=== PATIENT | male | born 1955 | race Caucasian/White ===

== ENCOUNTER → 2023-03-04 10:24 | Outpatient (BNVA) | payer MEDICARE, MEDICAID, SELFPAY | PROVIDERS: Visit Provider Emergency Medicine | DX: R05.3 Chronic cough (principal); U09.9 Post COVID-19 condition, unspecified; E78.5 Hyperlipidemia, unspecified; I10 Essential (primary) hypertension; Z12.5 Encounter for screening for malignant neoplasm of prostate; R35.1 Nocturia; K52.9 Noninfective gastroenteritis and colitis, unspecified | CPT/HCPCS: 80053; 80061; 83880; 85025; G0103 ==

== ENCOUNTER → 2023-06-07 11:27 | Outpatient (BNVA) | payer MEDICARE, MEDICAID, SELFPAY | PROVIDERS: Referring Provider Nurse Practitioner Family; Visit Provider Internal Medicine Cardiovascular Disease | DX: R05.3 Chronic cough (principal); U09.9 Post COVID-19 condition, unspecified; R07.9 Chest pain, unspecified; I65.29 Occlusion and stenosis of unspecified carotid artery; I10 Essential (primary) hypertension; E78.5 Hyperlipidemia, unspecified; K21.9 Gastro-esophageal reflux disease without esophagitis; K52.9 Noninfective gastroenteritis and colitis, unspecified | CPT/HCPCS: 93005; 99204 ==

== ENCOUNTER 2023-07-02 12:54 | Outpatient (CLI) | payer MEDICARE, MEDICAID, SELFPAY ==
--- NOTE | 2023-07-02 13:15 | USCV_ITS ---
Tex Krishna Age: 67 Gender: M : 1955 Exam Date: 07/02/2023 13:17 Ordering Phys: Claritza Puentes MD ([email or web address]) Technologist: MANUEL Exam Location: [facility] Indication: caroid stenosis Risk Factors: Smoker Previous Vascular Surgery: None Right Brachial BP: / Left Brachial BP: / Right Left Velocity (cm/s) Spectral Plaque Velocity (cm/s) Spectral Plaque Syst/Diast Broadening Syst/Diast Broadening 45.40/ 8.50 Prox CCA 40.60 / 9.10 91.40/ 17.10 Mid CCA 45.40 / 11.70 70.00/ 14.50 Distal CCA 90.60 / 18.80 74.80/ 21.70 Prox ICA 55.50 / 16.20 88.10/ 22.90 Mid ICA 47.40 / 11.10 95.30/ 25.30 Distal ICA 49.30 / 15.30 95.30 ECA 147.20 1.04 ICA/CCA 0.61 Antegrade Vertebral Retrograde 95.30/ 21.70 cm/s 41.90/ 6.00 cm/s Tri Subclavian Bi 80.70 143.2 0 CONCLUSIONS Right ICA stenosis <50%. Mild atheromatous plaque right carotid bulb/ICA. Left ICA stenosis <50%. Mild atheromatous plaque left carotid bulb/ICA. Intimal thickening in the common carotid arteries and internal carotid arteries bilaterally. Normal antegrade Doppler flow noted in the right vertebral artery. Normal antegrade Doppler flow noted in the left vertebral artery. Mat Urbano MD (Electronically Signed) Final Date: 02 July 2023 15:54 S
--- NOTE | 2023-07-02 13:45 | USR_ITS ---
PROCEDURE INFORMATION: Exam: US Duplex Upper Extremity Arteries Exam date and time: 07/02/2023 1:48 PM Age: 67 years old Clinical indication: Other: Difference in BP between left and right arm; Patient HX: No injury of upper extremity, no pain, no swellling; Additional info: Subclavian stenosis suspected TECHNIQUE: Imaging protocol: Real-time ultrasound scan of the arteries of the bilateral upper extremities with 2-D bruno scale, color Doppler flow and spectral waveform analysis. Complete exam. COMPARISON: No relevant prior studies available. FINDINGS: Right lower extremity: Subclavian artery, right axillary and brachial arteries are triphasic.. Right radial artery and ulnar arteries are triphasic. Patent palmar arch. Left lower extremity: Left subclavian artery appears multi phasic with dampened upstroke and prolonged delta S. Axillary artery brachial artery are monophasic. Left radial artery monophasic as is the ulnar artery. US/[place] [id number] Impression: Abnormal waveforms on the left diffusely suggestive of a left upper extremity narrowing. Consider CT angiography to include the origin of the left subclavian artery. Correlate regarding asymmetry of the upper extremity pulses.
== END 2023-07-02 12:55 | disposition home or self-care (01) ==
PROVIDERS: Visit Provider Internal Medicine Cardiovascular Disease
DX: I65.23 Occlusion and stenosis of bilateral carotid arteries (principal)
CPT/HCPCS: 93880; 93930

== ENCOUNTER 2023-08-12 11:46 | Outpatient (CLI) | payer MEDICARE, MEDICAID, SELFPAY ==
--- NOTE | 2023-08-12 12:00 | CT_ITS ---
WS: [id number] CT scan of the left upper extremity. Additional two-dimensional coronal and sagittal reconstruction w as performed. MIP images were also performed. 08/12/2023 Clinical Data: R94.39 - Abnormal result of other cardiovascular function... Comparison: Arterial upper extremity ultrasound, 07/02/2023 DLP: 536.[address] scans at [facility] use at least one of these dose optimization techniques: automated e xposure control; mA and/or kV adjustment per patient size (includes targeted exams where dose is matc hed to clinical indication); or iterative reconstruction. Findings: The contrast material entered the left subclavian artery. Just beyond its origin there was an approxi mate 80% stenosis. The contrast material did flow beyond the stenosis to fill the brachial artery and numerous branches of the left arm. The right subclavian artery was larger and show no stenosis. 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
[2023-08-12 12:47] LABS: Blood Urea Nitrogen 9 mg/dL (8-23); Glomerular Filtration Rate 84.2 mL/min (90-130)
[2023-08-12] MEDS: iohexol 350 mg/mL 500 mL Btl (per mL) IV (13:02)
== END 2023-08-12 11:47 | disposition home or self-care (01) ==
LOC: RAD 11:47
PROVIDERS: Visit Provider Internal Medicine Cardiovascular Disease
DX: I70.8 Atherosclerosis of other arteries (principal); R94.39 Abnormal result of other cardiovascular function study
CPT/HCPCS: 73206; 82565; 84520; Q9967

== ENCOUNTER → 2023-09-22 13:15 | Outpatient (BNVA) | payer MEDICARE, MEDICAID, SELFPAY | PROVIDERS: Visit Provider Internal Medicine | DX: I65.29 Occlusion and stenosis of unspecified carotid artery (principal); I10 Essential (primary) hypertension; E78.5 Hyperlipidemia, unspecified; K21.9 Gastro-esophageal reflux disease without esophagitis | CPT/HCPCS: 99214 ==

== ENCOUNTER 2023-10-28 14:07 | Outpatient (CLI) | payer MEDICARE, MEDICAID, SELFPAY ==
--- NOTE | 2023-10-28 14:30 | CT_ITS ---
WS: [id number] LDCT LUNG CANCER SCREENING HISTORY: Z87.891 - Personal history of nicotine dependence TECHNIQUE: Axial imaging performed from the apices to 1 cm below the costophrenic angles. Coronal and sagittal reformats are submitted with axial MIP series. All CT scans at [facility] use at least one of these dose optimization techniques: automated exposure control; mA and/or kV adjustment per patient size (includes targeted exams where dose is matched to clinical indication); or iterativ e reconstruction. DLP: 81.08 mGy.cm DIvol: Mean CTDIvol: 1.50 (mGy) COMPARISON: None available. Diagnostic quality: Satisfactory Lungs: Moderate centrilobular emphysema. No pulmonary nodule or mass. No endobronchial lesions. Heart: Normal size heart with no pericardial effusion.. Moderate calcified plaque in the LEFT anterio r descending and also the LEFT main coronary artery. Other findings: Very minimal atherosclerosis aorta. No adenopathy. Normal sized pulmonary artery. No adrenal mass. IMPRESSION: CT/CT lung screening [id number] LUNG-RADS: 1-Negative FOLLOW UP: 12 Month: Continue annual screening with LDCT OTHER FINDINGS (S MODIFIER): None.
== END 2023-10-28 14:08 | disposition home or self-care (01) ==
LOC: RAD 14:08
PROVIDERS: PCP Family Medicine; Visit Provider Family Medicine
DX: Z87.891 Personal history of nicotine dependence (principal); Z12.2 Encounter for screening for malignant neoplasm of respiratory organs
CPT/HCPCS: 71271

== ENCOUNTER 2024-01-10 12:06 | Inpatient (IN) | payer MEDICARE, MEDICAID, SELFPAY ==
[2024-01-10] VITALS (89 sets, daily range): BP systolic 94–181; BP diastolic 51–95; PULSE 71–134; RESP 11–39; TEMP 37.1–38.8; O2SAT 79–100; BMI 23.3
--- NOTE | 2024-01-10 12:08 | XRR_ITS ---
PROCEDURE INFORMATION: Exam: XR Chest Exam date and time: 01/10/2024 12:16 PM Age: 68 years old Clinical indication: Shortness of breath; Additional info: SOB TECHNIQUE: Imaging protocol: Radiologic exam of the chest. Views: 1 view. COMPARISON: CT lung screening [id number] 28/10/2023 14:34 FINDINGS: Lungs: There are extensive new bilateral pulmonary infiltrates in the mid and lower lung zones concerning for pneumonia. The lungs are hyperinflated with underlying COPD. Pleural spaces: No pleural effusions Heart/Mediastinum: Unremarkable. No cardiomegaly. Bones/joints: Unremarkable. XR/XR chest 1V portable [id number] IMPRESSION: Extensive new bilateral pulmonary infiltrates concerning for multifocal pneumonia. The lungs were clear on the screening CT chest from October 28, 2023
--- NOTE | 2024-01-10 12:11 | ECG_ITS ---
[facility] Test Date: 2024-01-10 Pat Name: Krishna Nice Department: Room: Gender: Male Methods Engineer: : 1955 Requested By: Brea Dennis Order Number: [id number] Sherley MD: Tip Soto M.D. Measurements Intervals Zenia Rate: 97 P: 100 OH: 90 QRS: 73 QRSD: 99 T: 79 QT: 389 QTc: 495 Interpretive Statements SINUS RHYTHM WITH SINUS ARRHYTHMIA WITH SHORT OH INTERVAL MINIMAL VOLTAGE CRITERIA FOR LVH, CONSIDER NORMAL VARIANT [MEETS CRITERIA IN ONE OF: R(aVL), S(V1), R(V5), R(V5/V6)+S(V1)] MODERATE ST DEPRESSION [0.05+ mV ST DEPRESSION] Compared to ECG 06/07/2023 11:31:03 Short OH interval now present ST (T wave) deviation now present Electronically Signed On 01-10-2024 17:56:53 CDT by Tip Soto M.D. [id number]
--- NOTE | 2024-01-10 12:14 | CT_ITS ---
WS: [id number] CTA OF THE CHEST WITH PULMONARY EMBOLISM PROTOCOL TECHNIQUE: High-resolution contrast enhanced CTA of the chest with coronal and sagittal reformatted i mages with pulmonary embolism protocol. MIP images are also reviewed. CLINICAL INFORMATION: sob COMPARISON: None. DLP: 771.[address] scans at [facility] use at least one of these dose optimization techniques: automated e xposure control; mA and/or kV adjustment per patient size (includes targeted exams where dose is matc hed to clinical indication); or iterative reconstruction. FINDINGS: Chronic centrilobular emphysematous change. New diffuse bilateral pulmonary infiltrates worse in the bilateral lower lobes. Infiltrates demonstrate a centrilobular configuration with subpleural sparing. Recommend correlation for infectious or inflammatory pneumonia including COVID-19 pneumonia. Normal caliber thoracic aorta. Proximal main pulmonary arteries are normal. No evidence of pulmonary embolus. A few prominent anterior mediastinal and parabronchial lymph nodes. Enlarged bilateral hilar lymph nodes nonspecific but may be reactive. No pleural fluid. Small esophageal hiatal hernia. Adren al glands are normal. Celiac and SMA are patent in the upper abdomen. Mild thoracic kyphosis. CT/CT angio chest PE protcl [id number] IMPRESSION: 1. Diffuse bilateral airspace infiltrates with centrilobular nodularity and so me subpleural sparing. Recommend correlation for infectious or inflammatory pne umonia including COVID-19 pneumonia. Also consider NSIP. 2. Prominent mediastinal and hilar lymph nodes nonspecific but may be reactive . 3. No evidence of pulmonary embolus.
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
[2024-01-10 12:29] LABS: ABG PH Result 7.53 (7.35-7.45); Arterial Blood Gas Hematocrit 31.5 % (42-52); Base Excess ABG 2.3 mmol/L (-2.0-2.0); Blood Gas Allen Test Pos; Blood Gas Sample Type Arterial; Carboxyhemoglobin 1.9 %THgb (0.4-20.1); HCO3 ABG 24.4 mmol/L (22-26); HGB O2 Sat 84.8 % (95-100); Methemoglobin 0.4 % (0.4-1.5); PO2 ABG 49.8 mmHg (80.0-100.0); Total Hemoglobin 10.3 g/dL (14-18)
[2024-01-10 12:30] LABS: Blood Gas Operator Identificat MONRO; Blood Gas Sample Site Radial, right; Fractionated Inspired Oxygen 0.5 %; Oxygen Device NC; PO2 FiO2 Ratio Arterial Blood 0
[2024-01-10] MEDS: sodium chloride 0.9% 500 ML 999 ML IV (12:48)
[2024-01-10] MEDS: piperacillin-tazobactam 3.375 GM in sodium chloride 0.9% (plus) 50 ML IV ×2 (12:48→17:21)
[2024-01-10] MEDS: sodium chloride 0.9% 1,000 ML 999 ML IV ×2 (12:48→12:49)
[2024-01-10 13:04] LABS: Basophils # 0.1 10^3/uL (0.0-0.1); Basophils % 0.2 %; Eosinophils # 0.2 10^3/uL (0.0-0.8); Eosinophils % 0.7 %; Hematocrit 32.4 % (37-53); Lymphocytes # 2.1 10^3/uL (0.8-4.8); Lymphocytes % 6.6 %; Mean Corpuscular HGB Conc 33.6 g/dL (30-55); Mean Corpuscular Hemoglobin 29.9 pg (27-33); Mean Corpuscular Volume 88.8 fl (82-101); Mean Platelet Volume 10.4 fL (7.4-10.4); Monocytes # 1.6 10^3/uL (0.2-0.9); Neutrophils # 27.56 10^3/uL (1.8-7.7); Neutrophils % 86.2 %; Nucleated Red Blood Cells % 0 %; Platelet Count 646 10^3/cmm (157-399); Red Blood Count 3.65 10^6/uL (3.85-5.65); Red Cell Distribution Width 13.1 % (12.1-15.1)
[2024-01-10 13:09] LABS: White Blood Count 31.94 10^3/uL (3.29-11.43)
[2024-01-10 13:17] LABS: INR 0.99 (0.8-1.2)
[2024-01-10 13:24] LABS: Lactic Sepsis W/Reflex 1.8 mmol/L (0.5-2.2)
[2024-01-10 13:28] LABS: Influenza A by IFA negative (Negative); Influenza B by IFA negative (Negative); SARS Covid-2 Antigen negative (Negative)
[2024-01-10 13:34] LABS: Alanine Aminotransferase 113 U/L (0-41); Albumin Level 3.1 g/dL (3.5-5.2); Alkaline Phosphatase 264 U/L (40-130); Aspartate Amino Transferase 93 U/L (0-40); Blood Urea Nitrogen 17 mg/dL (8-23); Calcium 8.6 mg/dL (8.5-10.5); Carbon Dioxide 23 mmol/L (22-29); Chloride 90 mmol/L (98-107); Creatinine Clr Calc Pharmacy 104.3565; Globulin 4.1 g/dL (1.3-4.6); Glomerular Filtration Rate 134.4 mL/min (90-130); Glucose 130 mg/dL (65-115); NT Pro B Type Natriuretic Pept 976 pg/mL (0-125); Osmolality Calculated 265 mOsm/kg (285-295); Sodium 126 mmol/L (136-145); Total Bilirubin 1.2 mg/dL (0.15-1.2); Total Protein 7.2 g/dL (6.6-8.7)
[2024-01-10] MEDS: iohexol 350 mg/mL 500 mL Btl (per mL) IV (13:45)
[2024-01-10] MEDS: vancomycin 1,000 MG in sodium chloride 0.9% 250 ML 250 MG IV (14:07)
[2024-01-10 14:42] LABS: ABG PCO2 34.1 mmHg (35-45); ABG PH Result 7.44 (7.35-7.45); Arterial Blood Gas Hematocrit 29.9 % (42-52); Base Excess ABG -0.8 mmol/L (-2.0-2.0); Blood Gas Allen Test Pos; Blood Gas Operator Identificat glc; Blood Gas Sample Site Radial, right; Blood Gas Sample Type Arterial; Oxygen Device BIPAP; PO2 ABG 54.6 mmHg (80.0-100.0); PO2 FiO2 Ratio Arterial Blood 0
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
[2024-01-10] MEDS: lidocaine 1% 5 ML in potassium chloride premix 100 ML 52.5 ML IV ×2 (17:06→19:20)
[2024-01-10] MEDS: enoxaparin 40 mg/0.4 mL Syringe SUBCUT (17:06)
[2024-01-10] MEDS: FUROsemide 10 mg/mL SDV 10mL 60 MG IVP (17:06)
[2024-01-10 17:15] LABS: Adenovirus Not Detected (NOT DETECT); Chlamydia Pneumoniae Not Detected (NOT DETECT); Coronavirus 229E,HKU1,NL63,OC4 Not Detected (NOT DETECT); Human Metapneumovirus Not Detected (NOT DETECT); Human Rhinovirus/Enterovirus Not Detected (NOT DETECT); Influenza A Not Detected (NOT DETECT); Influenza A H1 Not Detected (NOT DETECT); Influenza A H1-2009 Not Detected (NOT DETECT); Influenza A H3 Not Detected (NOT DETECT); Influenza B Not Detected (NOT DETECT); Mycoplasma Pneumoniae Not Detected (NOT DETECT); Parainfluenza Virus Type 1 Not Detected (NOT DETECT); Parainfluenza Virus Type 2 Not Detected (NOT DETECT); Parainfluenza Virus Type 3 Not Detected (NOT DETECT); Parainfluenza Virus Type 4 Not Detected (NOT DETECT); Respiratory Syncytial Virus A Not Detected (NOT DETECT); Respiratory Syncytial Virus B Not Detected (NOT DETECT); SARS-COV-2 Not Detected (NOT DETECT)
[2024-01-10 17:18] LABS: Thyroid Stimulating Hormone 0.49 uIU/mL (0.27-4.20); Vitamin B12 686 pg/mL (232-1245)
[2024-01-10] MEDS: acetaminophen 500 mg Tablet PO (20:03)
[2024-01-10] MEDS: budesonide 0.5 mg/2 mL Neb INHALATION (20:15)
[2024-01-10] MEDS: vancomycin 1,500 MG/300 ML PIGGYBACK 200 MG IV (21:25)
--- NOTE | 2024-01-10 23:23 | PC.NURSE ---
Patient had a nine beat run of VTACH, patient was asymptomatic, no chest pain. Vital signs stable. Dr. Stratton notified and ordered a repeat bmp and mag and carvedilol 12.5 Q12 PO.
[2024-01-10] MEDS: carvedilol 3.125 mg Tablet PO (23:54)
[2024-01-11] VITALS (28 sets, daily range): BP systolic 99–166; BP diastolic 47–83; PULSE 63–98; RESP 14–34; TEMP 36.1–36.8; O2SAT 83–97
[2024-01-11 00:24] LABS: Anion Gap 14.7 (5-19); Blood Urea Nitrogen 14 mg/dL (8-23); Calcium 8.3 mg/dL (8.5-10.5); Carbon Dioxide 25 mmol/L (22-29); Chloride 95 mmol/L (98-107); Creatinine Clr Calc Pharmacy 105.0465; Glomerular Filtration Rate 96.4 mL/min (90-130); Glucose 121 mg/dL (65-115); Osmolality Calculated 274 mOsm/kg (285-295); Potassium 3.7 mmol/L (3.5-5.1); Sodium 131 mmol/L (136-145)
[2024-01-11] MEDS: piperacillin-tazobactam 3.375 GM in sodium chloride 0.9% (plus) 50 ML IV ×3 (01:44→17:35)
--- NOTE | 2024-01-11 03:24 | PC.NURSE ---
Lasix: Dr. Stratton contacted about patient's order for lasix 60 mg ivp q12, patient has already had 2500 mls of urine out tonight, lungs are clear, blood pressure is 99/47 currently and patient's potassium is 3.7 post 40meq k-rider. Dr. Stratton ordered to decrease to 40mg q12 and start at 0900.
[2024-01-11 04:10] LABS: ABG PCO2 38.9 mmHg (35-45); ABG PH Result 7.46 (7.35-7.45); Arterial Blood Gas Hematocrit 28.9 % (42-52); Base Excess ABG 3.7 mmol/L (-2.0-2.0); Blood Gas Allen Test Pos; Blood Gas Sample Site Radial, left; Blood Gas Sample Type Arterial; HCO3 ABG 27.8 mmol/L (22-26); Oxygen Device NC; PO2 ABG 70.2 mmHg (80.0-100.0); PO2 FiO2 Ratio Arterial Blood 0
[2024-01-11 05:34] LABS: Basophils # 0.1 10^3/uL (0.0-0.1); Basophils % 0.2 %; Eosinophils # 0.5 10^3/uL (0.0-0.8); Eosinophils % 2.1 %; Hematocrit 27.8 % (37-53); Lymphocytes # 1.7 10^3/uL (0.8-4.8); Lymphocytes % 7.6 %; Mean Corpuscular HGB Conc 33.1 g/dL (30-55); Mean Corpuscular Hemoglobin 29.8 pg (27-33); Mean Platelet Volume 10.2 fL (7.4-10.4); Monocytes # 1.2 10^3/uL (0.2-0.9); Neutrophils # 19.29 10^3/uL (1.8-7.7); Neutrophils % 83.7 %; Nucleated Red Blood Cells % 0 %; Platelet Count 548 10^3/cmm (157-399); Red Blood Count 3.09 10^6/uL (3.85-5.65); Red Cell Distribution Width 13.3 % (12.1-15.1); White Blood Count 23.04 10^3/uL (3.29-11.43)
[2024-01-11 05:58] LABS: Anion Gap 14.5 (5-19); Blood Urea Nitrogen 16 mg/dL (8-23); Calcium 8.6 mg/dL (8.5-10.5); Carbon Dioxide 26 mmol/L (22-29); Chloride 96 mmol/L (98-107); Creatinine Clr Calc Pharmacy 104.0574; Glomerular Filtration Rate 112.5 mL/min (90-130); Glucose 114 mg/dL (65-115); Magnesium 2.2 mg/dL (1.7-2.3); Osmolality Calculated 278 mOsm/kg (285-295); Phosphorus 3.5 mg/dL (2.5-4.5); Potassium 3.5 mmol/L (3.5-5.1); Sodium 133 mmol/L (136-145)
[2024-01-11] MEDS: budesonide 0.5 mg/2 mL Neb INHALATION ×2 (08:57→20:46)
[2024-01-11] MEDS: ipratropium-albuterol 3 mL Neb INHALATION ×2 (08:57→20:46)
[2024-01-11] MEDS: vancomycin 1,500 MG/300 ML PIGGYBACK 200 MG IV ×2 (10:04→22:01)
[2024-01-11] MEDS: FUROsemide 10 mg/mL SDV 4mL 40 MG IVP ×2 (10:04→20:08)
[2024-01-11] MEDS: lisinopril 20 mg Tablet PO (10:05)
[2024-01-11] MEDS: sennosides-docusate Tablet 1 TAB PO (10:05)
[2024-01-11] MEDS: potassium chloride ER 20 mEq Tablet 40 MEQ PO (10:05)
[2024-01-11] MEDS: atorvastatin 40 mg Tablet PO (10:05)
[2024-01-11] MEDS: carvedilol 3.125 mg Tablet PO ×2 (10:05→17:35)
[2024-01-11] MEDS: fixodent 39 gm Tube 1 APPLIC DENTAL (10:06)
--- NOTE | 2024-01-11 13:12 | P.PN_ITS ---
Subjective 2 Subjective: Patient stating that he is feeling better No further hemoptysis Leukocytosis trending down I have asked RT to wean his oxygen down from heated high flow to nasal cannula if possible today We can transfer him out of ICU Vitals/I&O/Wt Last Vital Signs Temp 96.9 F L 01/11/24 12:00 Pulse 85 01/11/24 12:00 Resp 31 H 01/11/24 12:00 BP 118/68 01/11/24 12:00 Pulse Ox 97 01/11/24 12:00 O2 Del Method Heated High Flow 01/11/24 03:00 O2 Flow Rate 55 01/11/24 09:38 FiO2 55 01/11/24 09:38 01/10/24 01/11/24 01/11/24 22:59 06:59 14:59 Intake Total 2920 / 3970 350 / 4320 600 / 600 Output Total 2105 / 2105 1375 / 3480 Balance 815 / 1865 -1025 / 840 600 / 600 Weight last 48 hrs Weight 81.964 kg Weight 83.915 kg Weight 82.554 kg Physical Exam 2 Narrative: Awake alert GCS 15 Nonfocal neuroexam Currently on heated high flow 50 L 55% Abdomen soft No active wheezing rhonchi or crackles Bilateral lung auscultation is unremarkable mild base rhonchi noticed Awake and alert Nonfocal neuroexam Pleasant cooperative Data 01/11/24 04:59 01/11/24 04:59 Micro: Microbiology 01/10/24 12:38 Blood Culture - Preliminary Blood NEGATIVE TO DATE 01/10/24 12:34 Blood Culture - Preliminary Blood NEGATIVE TO DATE 01/10/24 19:54 Bacterial Antigens - Final Urine,Voided A&P Assessment and plan (1) GERD (gastroesophageal reflux disease): Qualifiers: Esophagitis presence: without esophagitis Qualified Code(s): K21.9 - Gastro-esophageal reflux disease without esophagitis (2) Nocturia: (3) COPD (chronic obstructive pulmonary disease): Qualifiers: COPD type: chronic bronchitis Chronic bronchitis type: simple Qualified Code(s): J41.0 - Simple chronic bronchitis (4) Pneumonia: (5) Pulmonary contusion: (6) Acute respiratory failure with hypoxia: Plan Acute hypoxia Currently on heated high flow Transition to nasal cannula if possible today No syncope History panel negative Afebrile Leukocytosis 29 Continue to biotics Transfer out of ICU to [facility] Continue steroids as well No active hemoptysis Hemoglobin stable Echo is unremarkable Plan to discharge by Attestations 2 Medical Necessity Statement*: Discharge by Diagnoses Gastroesophageal reflux disease without esophagitis K21.9 Esophagitis presence: without esophagitis Nocturia R35.1 Simple chronic bronchitis J41.0 COPD type: chronic bronchitis Chronic bronchitis type: simple Pneumonia J18.9 Pulmonary contusion S27.329A Acute respiratory failure with hypoxia J96.01
--- NOTE | 2024-01-11 15:55 | PC.NURSE ---
Transfer Note Patient transferred to med-surg room 263 from ICU via wheelchair. Handoff report given to Guillermina. Patient oriented to environment and equipment. Covering service notified. Orders reviewed and will continue to monitor. Family notified. All patient belongings transferred with patient and placed at bedside. Upon transfer patient is alert/oriented x4 on 10LNC. No wounds or skin issues noted at this time.
[2024-01-11] MEDS: acetaminophen 500 mg Tablet PO (20:36)
[2024-01-12] VITALS (19 sets, daily range): BP systolic 92–151; BP diastolic 57–76; PULSE 78–108; RESP 18–21; TEMP 36.5–36.8; O2SAT 90–95
[2024-01-12] MEDS: piperacillin-tazobactam 3.375 GM in sodium chloride 0.9% (plus) 50 ML IV ×3 (01:36→16:53)
[2024-01-12] MEDS: ipratropium-albuterol 3 mL Neb INHALATION ×4 (03:38→20:12)
[2024-01-12 06:30] LABS: Basophils # 0.1 10^3/uL (0.0-0.1); Basophils % 0.2 %; Eosinophils # 0.9 10^3/uL (0.0-0.8); Eosinophils % 3.3 %; Hematocrit 27.7 % (37-53); Lymphocytes # 1.8 10^3/uL (0.8-4.8); Lymphocytes % 6.5 %; Mean Corpuscular HGB Conc 33.2 g/dL (30-55); Mean Corpuscular Hemoglobin 29.9 pg (27-33); Mean Corpuscular Volume 89.9 fl (82-101); Mean Platelet Volume 9.8 fL (7.4-10.4); Monocytes # 1.2 10^3/uL (0.2-0.9); Monocytes % 4.4 %; Neutrophils # 22.96 10^3/uL (1.8-7.7); Neutrophils % 84.2 %; Nucleated Red Blood Cells % 0 %; Platelet Count 662 10^3/cmm (157-399); Red Blood Count 3.08 10^6/uL (3.85-5.65); Red Cell Distribution Width 13.3 % (12.1-15.1); White Blood Count 27.27 10^3/uL (3.29-11.43)
[2024-01-12 07:00] LABS: Anion Gap 12.9 (5-19); Blood Urea Nitrogen 17 mg/dL (8-23); Calcium 8.3 mg/dL (8.5-10.5); Carbon Dioxide 28 mmol/L (22-29); Chloride 98 mmol/L (98-107); Creatinine Clr Calc Pharmacy 103.3908; Glomerular Filtration Rate 96.4 mL/min (90-130); Glucose 123 mg/dL (65-115); Osmolality Calculated 283 mOsm/kg (285-295); Potassium 3.9 mmol/L (3.5-5.1); Sodium 135 mmol/L (136-145)
[2024-01-12] MEDS: acetaminophen 500 mg Tablet PO (07:52)
[2024-01-12] MEDS: FUROsemide 10 mg/mL SDV 4mL 40 MG IVP ×2 (07:52→20:11)
[2024-01-12] MEDS: carvedilol 3.125 mg Tablet PO ×2 (07:53→16:53)
[2024-01-12] MEDS: atorvastatin 40 mg Tablet PO (07:53)
[2024-01-12] MEDS: budesonide 0.5 mg/2 mL Neb INHALATION ×2 (08:24→20:12)
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
[2024-01-12] MEDS: vancomycin 1,500 MG/300 ML PIGGYBACK 200 MG IV ×2 (09:29→21:09)
--- NOTE | 2024-01-12 11:47 | PC.SOCIAL ---
Pg 2 IMM Explained to pt Pg 2 IMM. No questions voiced. Provided pt a copy. Initialed, dated, & timed copy & placed in chart.
--- NOTE | 2024-01-12 12:31 | P.PN_ITS ---
Subjective 2 Subjective: Extensive infiltrate evident on the chest x-ray Patient requiring 14 L of nasal cannula Gets hypoxic on minimal activity Leukocytosis without fever Cultures negative ARDS Vitals/I&O/Wt Last Vital Signs Temp 97.8 F 01/12/24 12:00 Pulse 81 01/12/24 12:00 Resp 20 H 01/12/24 12:00 BP 102/57 01/12/24 12:00 Pulse Ox 95 01/12/24 12:00 O2 Del Method Nasal Cannula 01/12/24 12:00 O2 Flow Rate 14 01/12/24 08:24 FiO2 55 01/11/24 09:38 01/11/24 01/12/24 01/12/24 22:59 06:59 14:59 Intake Total 460 / 1060 710 / 1770 900 / 900 Output Total 350 / 350 1250 / 1600 700 / 700 Balance 110 / 710 -540 / 170 200 / 200 Weight last 48 hrs Weight 80.649 kg Weight 81.964 kg Weight 83.915 kg Physical Exam 2 Narrative: Patient gets hypoxic on minimal activities GCS 15 Euvolemic Awake and alert Currently on 14 L nasal cannula Pleasant cooperative Use a bedside commode Nonfocal neuroexam S1, S2 Data 01/12/24 06:14 01/12/24 06:14 Micro: Microbiology 01/11/24 12:55 Gram Stain - Final Sputum - Expectorated Sputum 01/10/24 12:38 Blood Culture - Preliminary Blood NEGATIVE TO DATE 01/10/24 12:34 Blood Culture - Preliminary Blood NEGATIVE TO DATE 01/10/24 19:54 Bacterial Antigens - Final Urine,Voided A&P Assessment and plan (1) Depression: Qualifiers: Depression Type: major depressive disorder Major depression recurrence: recurrent Active/Remission status: currently active Major depression episode severity: moderate Qualified Code(s): F33.1 - Major depressive disorder, recurrent, moderate (2) Carotid stenosis: Qualifiers: Laterality: left Qualified Code(s): I65.22 - Occlusion and stenosis of left carotid artery (3) GERD (gastroesophageal reflux disease): Qualifiers: Esophagitis presence: without esophagitis Qualified Code(s): K21.9 - Gastro-esophageal reflux disease without esophagitis (4) Pneumonia: (5) Acute respiratory failure with hypoxia: (6) Pulmonary contusion: (7) COPD (chronic obstructive pulmonary disease): Qualifiers: COPD type: chronic bronchitis Chronic bronchitis type: simple Qualified Code(s): J41.0 - Simple chronic bronchitis Plan Patient has moderate to severe ARDS Currently on 14 L Differentials include pulmonary contusion Organizing pneumonia Possible fibrosis? 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 Start heated high flow to keep his O2 saturation above 89 percent Request ABG Repeat x-ray today Patient gets hypoxic on minimal activities Echo unremarkable Attestations 2 Medical Necessity Statement*: Continue medical management Diagnoses Moderate episode of recurrent major depressive disorder F33.1 Depression Type: major depressive disorder Major depression recurrence: recurrent Active/Remission status: currently active Major depression episode severity: moderate Stenosis of left carotid artery I65.22 Laterality: left Gastroesophageal reflux disease without esophagitis K21.9 Esophagitis presence: without esophagitis Pneumonia J18.9 Acute respiratory failure with hypoxia J96.01 Pulmonary contusion S27.329A Simple chronic bronchitis J41.0 COPD type: chronic bronchitis Chronic bronchitis type: simple
[2024-01-12] MEDS: methylPREDNISolone sod succ 125 mg/2 mL INJ 60 MG IVP (12:55)
[2024-01-12 13:07] LABS: ABG PCO2 37.9 mmHg (35-45); ABG PH Result 7.47 (7.35-7.45); Arterial Blood Gas Hematocrit 29.7 % (42-52); Base Excess ABG 3.4 mmol/L (-2.0-2.0); Blood Gas Allen Test Pos; Blood Gas Operator Identificat WALCI; Blood Gas Sample Site Radial, right; Blood Gas Sample Type Arterial; HCO3 ABG 27.3 mmol/L (22-26); Oxygen Device NC; PO2 ABG 63.6 mmHg (80.0-100.0)
[2024-01-12] MEDS: sulfamethoxazole-trimeth inj 480 MG in dextrose 5 % 500 ML 500 MG IV ×2 (14:33→22:37)
--- NOTE | 2024-01-12 18:40 | PC.NURSE ---
SHIFT SUMMARY Patient has done well today. Currently on heated high flow and tolerating well. Excellent intake and output. Currently resting in bed. O2 sats have been in the low to mid 90s all day.
[2024-01-12] MEDS: zolpidem 5 mg Tablet PO (22:37)
[2024-01-13] VITALS (17 sets, daily range): BP systolic 119–153; BP diastolic 66–76; PULSE 65–95; RESP 14–20; TEMP 36.4–36.9; O2SAT 90–94
[2024-01-13] MEDS: methylPREDNISolone sod succ 125 mg/2 mL INJ 60 MG IVP ×2 (01:13→11:42)
[2024-01-13] MEDS: piperacillin-tazobactam 3.375 GM in sodium chloride 0.9% (plus) 50 ML IV ×3 (01:13→19:51)
[2024-01-13 04:14] LABS: ABG PH Result 7.47 (7.35-7.45); Arterial Blood Gas Hematocrit 29.7 % (42-52); Base Excess ABG 3.9 mmol/L (-2.0-2.0); Blood Gas Allen Test Pos; Blood Gas Sample Site Brachial, right; Blood Gas Sample Type Arterial; HCO3 ABG 27.8 mmol/L (22-26); Oxygen Device NC; PO2 ABG 53.8 mmHg (80.0-100.0); PO2 FiO2 Ratio Arterial Blood 0
[2024-01-13 05:07] LABS: Basophils % 0.1 %; Hematocrit 28.6 % (37-53); Lymphocytes # 1.1 10^3/uL (0.8-4.8); Lymphocytes % 4.9 %; Mean Corpuscular HGB Conc 32.5 g/dL (30-55); Mean Corpuscular Hemoglobin 29.6 pg (27-33); Mean Corpuscular Volume 91.1 fl (82-101); Mean Platelet Volume 10.1 fL (7.4-10.4); Monocytes # 0.4 10^3/uL (0.2-0.9); Monocytes % 1.7 %; Neutrophils # 20.58 10^3/uL (1.8-7.7); Neutrophils % 91.8 %; Nucleated Red Blood Cells % 0 %; Platelet Count 735 10^3/cmm (157-399); Red Blood Count 3.14 10^6/uL (3.85-5.65); Red Cell Distribution Width 13.2 % (12.1-15.1); White Blood Count 22.44 10^3/uL (3.29-11.43)
[2024-01-13 05:24] LABS: Blood Urea Nitrogen 17 mg/dL (8-23); Calcium 8.5 mg/dL (8.5-10.5); Carbon Dioxide 25 mmol/L (22-29); Chloride 97 mmol/L (98-107); Creatinine Clr Calc Pharmacy 93.2341; Glomerular Filtration Rate 84.2 mL/min (90-130); Glucose 117 mg/dL (65-115); Osmolality Calculated 279 mOsm/kg (285-295); Sodium 133 mmol/L (136-145)
[2024-01-13 05:25] LABS: Vancomycin Trough 14.6 ug/mL (10-15)
[2024-01-13] MEDS: sulfamethoxazole-trimeth inj 480 MG in dextrose 5 % 500 ML 500 MG IV ×3 (06:14→22:40)
[2024-01-13] MEDS: ipratropium-albuterol 3 mL Neb INHALATION ×3 (07:37→19:44)
[2024-01-13] MEDS: budesonide 0.5 mg/2 mL Neb INHALATION ×2 (07:37→19:43)
[2024-01-13 07:59] LABS: Glucose Point of Care 162 mg/dL (70-110)
[2024-01-13] MEDS: atorvastatin 40 mg Tablet PO (09:08)
[2024-01-13] MEDS: sennosides-docusate Tablet 1 TAB PO (09:08)
[2024-01-13] MEDS: carvedilol 3.125 mg Tablet PO ×2 (09:08→17:07)
[2024-01-13] MEDS: FUROsemide 10 mg/mL SDV 4mL 40 MG IVP ×2 (09:09→21:05)
[2024-01-13] MEDS: vancomycin 1,500 MG/300 ML PIGGYBACK 200 MG IV ×2 (09:11→21:05)
--- NOTE | 2024-01-13 12:01 | P.PN_ITS ---
Subjective 2 Subjective: Patient is on Bactrim Will discuss with Dr. Majano if we can do bronchoscopy Afebrile Leukocytosis high but trending down Patient is being up maryann brown sputum Patient is on heated high flow 45 L, 55% Vitals/I&O/Wt Last Vital Signs Temp 98.0 F 01/13/24 11:50 Pulse 65 01/13/24 11:50 Resp 16 01/13/24 11:50 BP 129/73 01/13/24 11:50 Pulse Ox 90 01/13/24 11:50 O2 Del Method Heated High Flow 01/13/24 11:50 O2 Flow Rate 45 01/13/24 07:42 FiO2 55 01/13/24 07:42 01/12/24 01/13/24 01/13/24 22:59 06:59 14:59 Intake Total 1360 / 2550 1060 / 3610 890 / 890 Output Total 2425 / 3125 1450 / 4575 Balance -1065 / -575 -390 / -965 890 / 890 Weight last 48 hrs Weight 83.603 kg Weight 80.649 kg Physical Exam 2 Narrative: Awake and alert Currently on heated high flow GCS 15 Bilateral breasts are without significant wheezing or rhonchi Abdomen soft Pleasant cooperative Euvolemic No active sign of fluid overload nonfocal neuroexam Data 01/13/24 04:14 01/13/24 04:14 Micro: Microbiology 01/11/24 12:55 Gram Stain - Final Sputum - Expectorated Sputum Sputum Culture - Preliminary A&P Assessment and plan (1) PCP (pneumocystis carinii pneumonia): (2) Acute respiratory failure with hypoxia: (3) COPD (chronic obstructive pulmonary disease): Qualifiers: COPD type: chronic bronchitis Chronic bronchitis type: simple Qualified Code(s): J41.0 - Simple chronic bronchitis (4) Pulmonary contusion: Plan PCP pneumonia causing ARDS Heated high flow 55% 45 L Bactrim added 01/11 Watch for hyponatremia Patient is euvolemic Continue steroids and Lasix Will speak with Dr. Majano to see if we can do bronchoscopy Will keep on IV steroids for severe ARDS Continue antibiotics Full code Patient is bringing up thick dark yellow sputum Attestations 2 Medical Necessity Statement*: Continue medical management Diagnoses PCP (pneumocystis carinii pneumonia) B59 Acute respiratory failure with hypoxia J96.01 Simple chronic bronchitis J41.0 COPD type: chronic bronchitis Chronic bronchitis type: simple Pulmonary contusion S27.848Y
[2024-01-13 13:31] LABS: Methicillin-Resist S.aureu PCR NOT DETECTED (NOT DETECTED)
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
[2024-01-13 21:36] LABS: Procalcitonin 0.27 ng/mL (0-0.5)
[2024-01-14] VITALS (25 sets, daily range): BP systolic 121–162; BP diastolic 57–74; PULSE 66–102; RESP 16–27; TEMP 36.1–36.8; O2SAT 86–98
[2024-01-14] MEDS: methylPREDNISolone sod succ 125 mg/2 mL INJ 60 MG IVP (00:34)
[2024-01-14] MEDS: piperacillin-tazobactam 3.375 GM in sodium chloride 0.9% (plus) 50 ML IV ×3 (03:03→19:47)
[2024-01-14 05:38] LABS: Basophils % 0.2 %; Hematocrit 29.7 % (37-53); Lymphocytes # 1.3 10^3/uL (0.8-4.8); Lymphocytes % 5.1 %; Mean Corpuscular Hemoglobin 29.8 pg (27-33); Mean Corpuscular Volume 90.3 fl (82-101); Monocytes # 0.5 10^3/uL (0.2-0.9); Neutrophils # 23.72 10^3/uL (1.8-7.7); Neutrophils % 91.7 %; Nucleated Red Blood Cells % 0 %; Platelet Count 833 10^3/cmm (157-399); Red Blood Count 3.29 10^6/uL (3.85-5.65); Red Cell Distribution Width 13.3 % (12.1-15.1)
[2024-01-14 05:56] LABS: Blood Urea Nitrogen 19 mg/dL (8-23); Calcium 8.8 mg/dL (8.5-10.5); Carbon Dioxide 25 mmol/L (22-29); Chloride 96 mmol/L (98-107); Creatinine Clr Calc Pharmacy 83.3011; Glomerular Filtration Rate 74.5 mL/min (90-130); Glucose 126 mg/dL (65-115); Osmolality Calculated 280 mOsm/kg (285-295); Sodium 133 mmol/L (136-145)
--- NOTE | 2024-01-14 07:03 | P.ANESASSM_ITS ---
Pre-Anesthetic Assessment Height/Weight: Height 1.88 m Weight 82.1 kg Temp Pulse Resp BP Pulse Ox O2 Del Method O2 Flow Rate 98.2 F 76 18 136/70 91 BiPAP 45 01/14/24 04:00 01/14/24 05:04 01/14/24 04:00 01/14/24 04:00 01/14/24 04:00 01/14/24 04:00 01/14/24 03:54 FiO2 55 01/14/24 03:54 Operation Date: 01/14/24 07:10 Proposed Procedures p Bronchoscopy(Not Applicable) - Dano Parikh DatarMD Familial anesthetic complications: None Was Beta Kortney taken within 24 hours: N/A Was Clonidine taken within 24 hours: N/A Last intake: Intake Last Liquid Date 01/13/24 Last Solid Date 01/13/24 Social No alcohol and No tobacco (Quit 7 years ago) Exam alert, oriented x 3 and regular rate & rhythm Diminished BBS Airway Submandibular: within normal limits Cervical ROM: within normal limits Mallampati: Class II Dentition: false History/ROS No significant history except as noted and No significant complaints Pulmonary Chronic Obstructive Pulmonary Disease, Cough, Exertional Dyspnea, Sleep Apnea and Shortness of Breath ARDS/pneumonia/mold exposure/rib fractures CV/HEM Arrythmia, Coronary Artery Disease, Congestive Heart Failure and Hypertension None reported Hepatic None reported GI Gastroesophageal Reflux Disease Diarrhea Metabolic Hyperlipidemia Musc/skel Osteoarthritis/DJD Neuropsych Anxiety and Depression Anesthetic Plan ASA status: 4 Anesthesia: Anesthesia Evaluation and General Risk of > 500 ml blood loss (7ml/kg in children): No Medications/Allergies Home Medications Medication Instructions Recorded Confirmed Last Taken Type aspirin 81 mg tablet,delayed 81 mg PO DAILY 03/04/23 01/10/24 Unknown History release (Adult Low Dose Aspirin) cetirizine 10 mg capsule (All Day 10 mg PO DAILY PRN Allergy Symptoms 03/04/23 01/10/24 Unknown History Allergy (cetirizine)) atorvastatin 40 mg tablet 40 mg PO DAILY #90 tabs 09/22/23 01/10/24 Unknown Rx albuterol sulfate 90 mcg/actuation 1 inh inhalation QID PRN shortness 10/05/23 01/10/24 Unknown Rx aerosol inhaler of breath #8.5 grams duloxetine 60 mg capsule,delayed 60 mg PO DAILY 90 days #90 caps 10/05/23 01/10/24 Unknown Rx release lisinopril 20 mg tablet 20 mg PO DAILY 90 days #90 tabs 10/05/23 01/10/24 Unknown Rx pantoprazole 40 mg tablet,delayed 40 mg PO DAILY 90 days #90 tabs 10/05/23 01/10/24 Unknown Rx release Allergies Allergy/AdvReac Type Severity Reaction Status Date / Time lactose Allergy ADR-Diarrhe Verified 01/10/24 20:09 a Current Medications Generic Name Dose Route Start Last Admin Trade Name Freq PRN Reason Stop Dose Admin Acetaminophen 500 mg 01/10/24 15:58 01/12/24 07:52 Acetaminophen 500 Mg Tablet PO 500 mg Q4H PRN Administration fever Albuterol/Ipratropium 3 ml 01/10/24 15:58 01/13/24 19:44 Ipratropium-Albuterol 3 Ml Neb INHALATION 3 ml Q6H PRN Administration SHORTNESS OF BREATH Atorvastatin Calcium 40 mg 01/11/24 09:00 01/13/24 09:08 Atorvastatin 40 Mg Tablet PO 40 mg DAILY GREGORIO Administration Budesonide 0.5 mg 01/10/24 20:00 01/13/24 19:43 Budesonide 0.5 Mg/2 Ml Neb INHALATION 0.5 mg BID.RESPIRATORY GREGORIO Administration Carvedilol 3.125 mg 01/10/24 23:30 01/13/24 17:07 Carvedilol 3.125 Mg Tablet PO 3.125 mg BID GREGORIO Administration Denture Adhesive 1 applic 01/11/24 08:51 01/11/24 10:06 Fixodent 39 Gm Tube DENTAL 1 applic PRN PRN Administration denture adhesive Enoxaparin Sodium 40 mg 01/10/24 15:58 01/10/24 17:06 Enoxaparin 40 Mg/0.4 Ml Syringe SUBCUT 40 mg Q24H GREGORIO Administration Furosemide 40 mg 01/11/24 09:00 01/13/24 21:05 Furosemide 10 Mg/Ml Sdv 4ml IVP 40 mg Q12H GREGORIO Administration Piperacillin Sod/Tazobactam 50 mls @ 12.5 mls/hr 01/10/24 18:00 01/14/24 03:03 Sod 3.375 gm/ Sodium Chloride IV 12.5 mls/hr Q8H GREGORIO Administration Protocol Vancomycin/PEG/NADA/Lysine/Water 1,500 mg in 300 mls @ 200 mls/hr 01/10/24 22:00 01/13/24 22:45 Vancocin IV Infused Q12H GREGORIO Infusion Trimethoprim/Sulfamethoxazole 530 mls @ 500 mls/hr 01/12/24 14:00 01/13/24 23:50 480 mg/ Dextrose IV Infused Q8H GREGORIO Infusion Lisinopril 20 mg 01/11/24 09:00 01/11/24 10:05 Lisinopril 20 Mg Tablet PO 20 mg DAILY GREGORIO Administration Methylprednisolone Sodium Succinate 60 mg 01/12/24 13:00 01/14/24 00:34 Methylprednisolone Sod Succ 125 Mg/2 Ml Inj IVP 60 mg Q12H GREGORIO Administration Senna/Docusate Sodium 1 tab 01/11/24 09:00 01/13/24 09:08 Sennosides-Docusate Tablet PO 1 tab DAILY GREGORIO Administration Zolpidem Tartrate 5 mg 01/12/24 12:37 01/12/24 22:37 Zolpidem 5 Mg Tablet PO 5 mg BEDTIME PRN Administration insonia PFSH Anesthesia Medical History GERD (gastroesophageal reflux disease) Chronic diarrhea Nocturia Prostate cancer screening COVID-19 long hauler manifesting chronic cough Hyperlipidemia HTN (hypertension) with goal to be determined Family History Father Alzheimer's dementia Cancer colon Social History Smoking and tobacco/nicotine status: former use of tobacco/nicotine Alcohol intake: never Substance/Drug Use: never Data Anesthesia 01/14/24 04:31 01/14/24 04:31 Short CBC 01/13/24 01/14/24 Range/Units 04:14 04:31 WBC 22.44 H 25.90 H (3.29-11.43) 10^3/uL Hgb 9.30 L 9.80 L (11.27-16.99) g/dL Hct 28.6 L 29.7 L (37-53) % MCV 91.1 90.3 (82-101) fl Plt Count 735 H 833 H (157-399) 10^3/cmm Neut % (Auto) 91.8 91.7 % Neut # (Auto) 20.58 H 23.72 H (1.8-7.7) 10^3/uL BMP 01/12/24 01/13/24 01/14/24 06:14 04:14 04:31 Sodium 135 L 133 L 133 L Potassium 4.0 4.0 Chloride 97 L 96 L Carbon Dioxide 25 25 BUN 17 19 Creatinine 0.9 1.0 Glucose 123 H 117 H 126 H Calcium 8.3 L 8.5 8.8 ABG 01/12/24 01/13/24 12:56 04:05 Specimen Type Arterial Arterial Sample Site Radial, right Brachial, right ABG pH 7.47 H 7.47 H ABG pCO2 37.9 38.0 ABG pO2 63.6 L 53.8 L ABG PO2/FiO2 Ratio 0 ABG HCO3 27.3 H 27.8 H ABG Base Excess 3.4 H 3.9 H O2 Delivery Device Nc Nc O2 Liters/Min 14.0 45.0 FiO2 55.0 Microbiology 01/13/24 21:33 Legionella Urinary Antigen - Final Urine Kidney 01/11/24 12:55 Gram Stain - Final Sputum - Expectorated Sputum Sputum Culture - Final Cardiac Studies: 2 Echocardiogram 01/10/24
[2024-01-14] MEDS: sodium chloride 0.9% 1,000 ML 30 ML IV (07:25)
[2024-01-14] MEDS: lidocaine 1% INJ 10 mL (per mL) XX (07:39)
[2024-01-14 08:59] LABS: Cyto Order Verification No Order
--- NOTE | 2024-01-14 09:00 | PC.NURSE ---
Anesthesia assessed patient in PACU. Determined appropriate for medsurg, report called to [facility]. Sp02 returned to preprocedure range 88%-90%. Pt states feeling better with breathing after procedure. [facility] to notify RT that patient is back in room to place on high flow nasal cannula again. Pt denies other needs at this time to PACU nurse.
[2024-01-14] MEDS: budesonide 0.5 mg/2 mL Neb INHALATION ×2 (09:17→20:23)
[2024-01-14] MEDS: ipratropium-albuterol 3 mL Neb INHALATION ×3 (09:17→20:23)
[2024-01-14] MEDS: sulfamethoxazole-trimeth inj 480 MG in dextrose 5 % 500 ML 500 MG IV ×3 (09:19→23:39)
[2024-01-14] MEDS: sennosides-docusate Tablet 1 TAB PO (09:20)
[2024-01-14] MEDS: FUROsemide 10 mg/mL SDV 4mL 40 MG IVP ×2 (09:20→19:46)
[2024-01-14] MEDS: carvedilol 3.125 mg Tablet PO ×2 (09:20→17:09)
--- NOTE | 2024-01-14 09:22 | ANE.PACU2 ---
Inpatient post-anesthesia follow up: Airway intact: Yes Vital signs: Temperature 97.0 F Pulse Rate [Therap y Changed] 74 Pulse Rate [Curren t] 78 Pulse Rate 74 Respiratory Rate [ Therapy 20 Changed] Respiratory Rate [ Current] 18 Respiratory Rate 20 Blood Pressure 127/57 Pulse Oximetry [Th erapy 92 Changed] Pulse Oximetry [Cu rrent] 93 Pulse Oximetry 93 Oxygen Delivery Me thod Heated High Flow Oxygen Flow Rate [ Therapy 45 Changed] Oxygen Flow Rate [ Current] 45 Oxygen Flow Rate 45 Fraction of Inspir ed Oxygen [ 55 Therapy Changed] Fraction of Inspir ed Oxygen [ 55 Current] Fraction of Inspir ed Oxygen 55 Hydration adequate: Yes Nausea and vomiting: No Pain level: 2 Mental status: Baseline Additional Comments: Patient asking questions and sitting up, O2sat 85-91%, if talking or coughing tends to dip.
[2024-01-14 10:11] LABS: Apprearance, Bronch Wash Bloody (CLEAR); Color, Bronc Wash Red; PATH Referral Yes; Total Cells Counted Bronch 200
--- NOTE | 2024-01-14 11:20 | PM.PN ---
Subjective Subjective: Discontinue steroids Worsening leukocytosis Bronchoscopy done today A lot of blood clots and mucus noticed Patient is still on 55 L 45% Heated high flow In case of further worsening I have notified nurse to transfer him to the ICU if needed however clinically doing much better Vitals/I&O/Wt Last Vital Signs Temp 97.5 F L 01/14/24 10:05 Pulse 77 01/14/24 10:05 Resp 18 01/14/24 10:05 BP 125/66 01/14/24 10:05 Pulse Ox 92 01/14/24 10:05 O2 Del Method High Flow Nasal Cannula 01/14/24 10:05 O2 Flow Rate 45 01/14/24 09:20 FiO2 55 01/14/24 09:20 01/13/24 01/14/24 01/14/24 22:59 06:59 14:59 Intake Total 1240 / 2550 700 / 3250 933.5 / 933.5 Output Total 400 / 400 675 / 1075 0 / 0 Balance 840 / 2150 25 / 2175 933.5 / 933.5 Weight last 48 hrs Weight 82.1 kg Weight 83.603 kg Physical Exam Narrative: Pleasant cooperative Currently on heated high flow Awake and alert GCS 15 Spitting up thick brown sputum Abdomen soft No active wheezing Pleasant nonfocal neuroexam Data 01/14/24 04:31 01/14/24 04:31 Micro: Microbiology 01/13/24 21:33 Legionella Urinary Antigen - Final Urine Kidney 01/11/24 12:55 Gram Stain - Final Sputum - Expectorated Sputum Sputum Culture - Final A&P Assessment and plan (1) Depression: Qualifiers: Depression Type: major depressive disorder Major depression recurrence: recurrent Active/Remission status: currently active Major depression episode severity: moderate Qualified Code(s): F33.1 - Major depressive disorder, recurrent, moderate (2) HTN (hypertension) with goal to be determined: (3) Carotid stenosis: Qualifiers: Laterality: left Qualified Code(s): I65.22 - Occlusion and stenosis of left carotid artery (4) GERD (gastroesophageal reflux disease): Qualifiers: Esophagitis presence: without esophagitis Qualified Code(s): K21.9 - Gastro-esophageal reflux disease without esophagitis (5) PCP (pneumocystis carinii pneumonia): (6) COPD (chronic obstructive pulmonary disease): Qualifiers: COPD type: chronic bronchitis Chronic bronchitis type: simple Qualified Code(s): J41.0 - Simple chronic bronchitis (7) Pneumonia: (8) Acute respiratory failure with hypoxia: (9) Pulmonary contusion: (10) Mold exposure: (11) Fracture of rib of left side: Plan Status post bronchoscopy Discontinue vancomycin MRSA nares negative Continue Zosyn and Bactrim Continue IV Lasix Discontinue steroids Worsening leukocytosis Dr. Majano do have suspicion for pulmonary contusion Patient currently on heated high flow Not ready to be discharged Follow-up with BAL report Afebrile Will repeat x-ray after bronchoscopy to rule out any pneumothorax Full code Attestations Medical Necessity Statement*: Continue medical treatment for [facility] Diagnoses Moderate episode of recurrent major depressive disorder F33.1 Depression Type: major depressive disorder Major depression recurrence: recurrent Active/Remission status: currently active Major depression episode severity: moderate HTN (hypertension) with goal to be determined I10 Stenosis of left carotid artery I65.22 Laterality: left Gastroesophageal reflux disease without esophagitis K21.9 Esophagitis presence: without esophagitis PCP (pneumocystis carinii pneumonia) B59 Simple chronic bronchitis J41.0 COPD type: chronic bronchitis Chronic bronchitis type: simple Pneumonia J18.9 Acute respiratory failure with hypoxia J96.01 Pulmonary contusion S27.329A Mold exposure Z77.120 Fracture of rib of left side S22.32XA
--- NOTE | 2024-01-14 11:23 | XR_ITS ---
WS: [id number] Portable AP upright chest, 01/14/2024 Clinical Data: post bronch Comparison: Portable chest, 01/12/2024 Findings: The bilateral nodular opacities seen throughout both lungs remain the same. The heart is no rmal. No pneumothorax is present. The pulmonary vascularity is not increased. The aortic arch and taty cending thoracic aorta show calcification and tortuosity. Monitor leads are on the chest wall. XR/XR chest 1V portable [id number] Impression: No change in bilateral lateral nodular opacities.
--- NOTE | 2024-01-14 14:25 | PC.SOCIAL ---
IMM Updated Updated pt on IMM. No questions voiced. Provided pt a copy. Initialed, dated, & timed copy in chart.
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
[2024-01-15] VITALS (16 sets, daily range): BP systolic 110–137; BP diastolic 56–81; PULSE 74–93; RESP 15–20; TEMP 36.4–36.8; O2SAT 89–95
[2024-01-15] MEDS: ipratropium-albuterol 3 mL Neb INHALATION ×4 (01:22→20:21)
[2024-01-15] MEDS: piperacillin-tazobactam 3.375 GM in sodium chloride 0.9% (plus) 50 ML IV ×3 (03:25→20:33)
[2024-01-15 06:39] LABS: Basophils % 0.1 %; Eosinophils # 0.3 10^3/uL (0.0-0.8); Eosinophils % 1.5 %; Lymphocytes # 2.3 10^3/uL (0.8-4.8); Lymphocytes % 11.6 %; Mean Corpuscular HGB Conc 32.6 g/dL (30-55); Mean Corpuscular Hemoglobin 29.6 pg (27-33); Mean Corpuscular Volume 90.9 fl (82-101); Mean Platelet Volume 9.8 fL (7.4-10.4); Monocytes # 1.2 10^3/uL (0.2-0.9); Monocytes % 5.9 %; Neutrophils # 15.98 10^3/uL (1.8-7.7); Nucleated Red Blood Cells % 0 %; Platelet Count 825 10^3/cmm (157-399); Red Blood Count 3.41 10^6/uL (3.85-5.65); Red Cell Distribution Width 13.4 % (12.1-15.1); White Blood Count 20.02 10^3/uL (3.29-11.43)
[2024-01-15 07:05] LABS: Anion Gap 14.8 (5-19); Blood Urea Nitrogen 20 mg/dL (8-23); Calcium 8.2 mg/dL (8.5-10.5); Carbon Dioxide 27 mmol/L (22-29); Chloride 95 mmol/L (98-107); Creatinine Clr Calc Pharmacy 82.3262; Glomerular Filtration Rate 74.5 mL/min (90-130); Glucose 124 mg/dL (65-115); Osmolality Calculated 278 mOsm/kg (285-295); Potassium 4.8 mmol/L (3.5-5.1); Sodium 132 mmol/L (136-145)
--- NOTE | 2024-01-15 08:09 | P.PN_ITS ---
Subjective 2 Subjective: Productive cough Pleuritic pain Afebrile On heated high flow Leukocytosis improving Patient is very worked up today stating that he is anxious because he will lose his house He is agreeable to go to SNF versus select LTAC if needed on Wednesday We will give him Xanax Leukocytosis trending down Vitals/I&O/Wt Last Vital Signs Temp 98 F 01/14/24 16:00 Pulse 83 01/14/24 16:00 Resp 18 01/14/24 16:00 BP 154/72 01/14/24 16:00 Pulse Ox 95 01/14/24 16:00 O2 Del Method High Flow Nasal Cannula 01/14/24 16:00 O2 Flow Rate 40 01/14/24 15:37 FiO2 50 01/14/24 15:37 01/14/24 01/14/24 01/14/24 06:59 14:59 22:59 Intake Total 700 / 3250 1613.5 / 1613.5 1160 / 2773.5 Output Total 675 / 1075 1300 / 1300 600 / 1900 Balance 25 / 2175 313.5 / 313.5 560 / 873.5 Weight last 48 hrs Weight 82.1 kg Weight 83.603 kg Physical Exam 2 Narrative: Nonfocal neuroexam Productive cough Pleuritic pain Mild rhonchi Abdomen soft Euvolemic S1, S2 On heated high flow Data 01/15/24 06:11 01/15/24 06:11 Micro: Microbiology 01/14/24 08:04 Gram Stain - Final Lung Left Lower Lobe - #1 01/13/24 21:33 Legionella Urinary Antigen - Final Urine Kidney A&P Assessment and plan (1) Mold exposure: (2) Pulmonary contusion: (3) Acute respiratory failure with hypoxia: (4) COPD (chronic obstructive pulmonary disease): Qualifiers: COPD type: chronic bronchitis Chronic bronchitis type: simple Qualified Code(s): J41.0 - Simple chronic bronchitis (5) PCP (pneumocystis carinii pneumonia): (6) Fracture of rib of left side: Plan Continue Zosyn and Bactrim Vancomycin discontinued Currently on heated high flow Will not be able to discharge once oxygen is around 5 to 6 L nasal cannula In case of further worsening my threshold will stay low to transfer him in ICU BAL lavage results are pending Cultures negative MRSA nares negative Pulmonary contusion: Steroids discontinued Status post bronchoscopy 01/13 Added Xanax for anxiety Attestations 2 Medical Necessity Statement*: Continue medical management Diagnoses Mold exposure Z77.120 Pulmonary contusion S27.329A Acute respiratory failure with hypoxia J96.01 Simple chronic bronchitis J41.0 COPD type: chronic bronchitis Chronic bronchitis type: simple PCP (pneumocystis carinii pneumonia) B59 Fracture of rib of left side S22.32XA
[2024-01-15] MEDS: budesonide 0.5 mg/2 mL Neb INHALATION ×2 (08:14→20:21)
[2024-01-15] MEDS: sennosides-docusate Tablet 1 TAB PO (09:23)
[2024-01-15] MEDS: carvedilol 3.125 mg Tablet PO ×2 (09:23→18:20)
[2024-01-15] MEDS: lisinopril 10 mg Tablet PO (09:45)
[2024-01-15] MEDS: sulfamethoxazole-trimeth inj 480 MG in dextrose 5 % 500 ML 500 MG IV ×2 (09:45→18:20)
[2024-01-15 09:49] LABS: P. Jirovecii DNA QL PCR NOT DETECTED; P. Jirovecii DNA QL PCR Source sputum
[2024-01-15] MEDS: ALPRAZolam 0.5 mg Tablet PO (13:02)
[2024-01-15 21:28] LABS: Vancomycin Trough < 4.0 ug/mL (10-15)
[2024-01-15] MEDS: lidocaine 2% viscous 15 ML, aluminum-mag hydrox-simethicon 30 ML, sucralfate oral liq 1 GM PO (21:47)
[2024-01-16] VITALS (14 sets, daily range): BP systolic 92–122; BP diastolic 55–69; PULSE 62–91; RESP 16–20; TEMP 36.5–37; O2SAT 91–100
[2024-01-16] MEDS: ondansetron 2 mg/ML SDV 2 mL 4 MG IVP (00:23)
[2024-01-16] MEDS: sulfamethoxazole-trimeth inj 480 MG in dextrose 5 % 500 ML 500 MG IV ×3 (01:17→17:27)
[2024-01-16] MEDS: ipratropium-albuterol 3 mL Neb INHALATION ×4 (01:59→20:37)
[2024-01-16] MEDS: piperacillin-tazobactam 3.375 GM in sodium chloride 0.9% (plus) 50 ML IV ×3 (04:33→21:25)
[2024-01-16 05:50] LABS: Basophils % 0.2 %; Eosinophils # 0.4 10^3/uL (0.0-0.8); Eosinophils % 2.1 %; Hematocrit 28.9 % (37-53); Lymphocytes # 1.6 10^3/uL (0.8-4.8); Lymphocytes % 8.9 %; Mean Corpuscular HGB Conc 32.9 g/dL (30-55); Mean Corpuscular Hemoglobin 29.2 pg (27-33); Mean Corpuscular Volume 88.9 fl (82-101); Mean Platelet Volume 9.4 fL (7.4-10.4); Monocytes # 0.9 10^3/uL (0.2-0.9); Monocytes % 5.2 %; Neutrophils # 14.62 10^3/uL (1.8-7.7); Neutrophils % 82.6 %; Nucleated Red Blood Cells % 0 %; Platelet Count 760 10^3/cmm (157-399); Red Blood Count 3.25 10^6/uL (3.85-5.65); Red Cell Distribution Width 13.2 % (12.1-15.1); White Blood Count 17.69 10^3/uL (3.29-11.43)
[2024-01-16 06:06] LABS: Anion Gap 11.2 (5-19); Blood Urea Nitrogen 18 mg/dL (8-23); Calcium 7.3 mg/dL (8.5-10.5); Carbon Dioxide 28 mmol/L (22-29); Chloride 97 mmol/L (98-107); Creatinine Clr Calc Pharmacy 82.4182; Glomerular Filtration Rate 74.5 mL/min (90-130); Glucose 135 mg/dL (65-115); Osmolality Calculated 276 mOsm/kg (285-295); Potassium 5.2 mmol/L (3.5-5.1); Sodium 131 mmol/L (136-145)
[2024-01-16] MEDS: budesonide 0.5 mg/2 mL Neb INHALATION ×2 (08:22→20:37)
[2024-01-16] MEDS: lisinopril 10 mg Tablet PO (08:24)
[2024-01-16] MEDS: sennosides-docusate Tablet 1 TAB PO (08:24)
[2024-01-16] MEDS: carvedilol 3.125 mg Tablet PO ×2 (08:24→17:26)
[2024-01-16] MEDS: ALPRAZolam 0.5 mg Tablet PO ×2 (08:34→21:25)
--- NOTE | 2024-01-16 13:29 | P.PN_ITS ---
Subjective 2 Subjective: Patient is on 10 L nasal cannula Leukocytosis improving Endorsing feeling better He was able to rest better today as compared to yesterday Agreeable to go to LTAC once get excepted Vitals/I&O/Wt Last Vital Signs Temp 97.7 F 01/16/24 05:11 Pulse 76 01/16/24 11:53 Resp 17 01/16/24 11:53 BP 111/69 01/16/24 11:53 Pulse Ox 94 01/16/24 11:53 O2 Del Method Heated High Flow 01/16/24 11:53 O2 Flow Rate 10 01/16/24 08:31 FiO2 40 01/15/24 13:45 01/15/24 01/16/24 01/16/24 22:59 06:59 14:59 Intake Total 700 / 1640 580 / 2220 580 / 580 Output Total 350 / 350 990 / 1340 Balance 350 / 1290 -410 / 880 580 / 580 Weight last 48 hrs Weight 79.923 kg Weight 79.696 kg Physical Exam 2 Narrative: Awake and alert Syncope Nonfocal neuroexam Euvolemic No active complaints Abdomen soft Pleasant cooperative On 10 L S1, S2 Data 01/16/24 05:37 01/16/24 05:37 Micro: Microbiology 01/14/24 08:04 Gram Stain - Final Lung Left Lower Lobe - #1 Bronchoalveolar Lavage Culture - Preliminary 01/10/24 12:34 Blood Culture - Final Blood NO GROWTH AFTER 5 DAYS 01/10/24 12:38 Blood Culture - Final Blood NO GROWTH AFTER 5 DAYS A&P Assessment and plan (1) Depression: Qualifiers: Depression Type: major depressive disorder Major depression recurrence: recurrent Active/Remission status: currently active Major depression episode severity: moderate Qualified Code(s): F33.1 - Major depressive disorder, recurrent, moderate (2) GERD (gastroesophageal reflux disease): Qualifiers: Esophagitis presence: without esophagitis Qualified Code(s): K21.9 - Gastro-esophageal reflux disease without esophagitis (3) PCP (pneumocystis carinii pneumonia): (4) Fracture of rib of left side: (5) Acute respiratory failure with hypoxia: (6) Pulmonary contusion: (7) COPD (chronic obstructive pulmonary disease): Qualifiers: COPD type: chronic bronchitis Chronic bronchitis type: simple Qualified Code(s): J41.0 - Simple chronic bronchitis (8) Mold exposure: Plan If oxygen requirement is still 1 to 2 L by tomorrow we will look into LTAC placement For now I am continuing Zosyn and Bactrim Will request LDH as well to decide on duration of IV Bactrim Cultures negative to date Improving gradually Lasix and steroids on hold Patient seems to be more calm at present UDS Xanax on as needed is added Attestations 2 Medical Necessity Statement*: Continue medical management Diagnoses Moderate episode of recurrent major depressive disorder F33.1 Depression Type: major depressive disorder Major depression recurrence: recurrent Active/Remission status: currently active Major depression episode severity: moderate Gastroesophageal reflux disease without esophagitis K21.9 Esophagitis presence: without esophagitis PCP (pneumocystis carinii pneumonia) B59 Fracture of rib of left side S22.32XA Acute respiratory failure with hypoxia J96.01 Pulmonary contusion S27.329A Simple chronic bronchitis J41.0 COPD type: chronic bronchitis Chronic bronchitis type: simple Mold exposure Z77.120
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
[2024-01-16 22:45] LABS: Legionella Specimen Source LLL BAL
[2024-01-17] VITALS (10 sets, daily range): BP systolic 101–111; BP diastolic 60–75; PULSE 75–103; RESP 17–19; TEMP 36.3–36.7; O2SAT 88–98
[2024-01-17] MEDS: ipratropium-albuterol 3 mL Neb INHALATION ×4 (02:59→20:05)
[2024-01-17] MEDS: piperacillin-tazobactam 3.375 GM in sodium chloride 0.9% (plus) 50 ML IV ×3 (05:38→22:10)
[2024-01-17 06:07] LABS: Basophils # 0.1 10^3/uL (0.0-0.1); Basophils % 0.4 %; Eosinophils # 0.5 10^3/uL (0.0-0.8); Eosinophils % 3.3 %; Hematocrit 32.5 % (37-53); Lymphocytes # 1.5 10^3/uL (0.8-4.8); Lymphocytes % 9.1 %; Mean Corpuscular Hemoglobin 29.5 pg (27-33); Mean Corpuscular Volume 92.1 fl (82-101); Mean Platelet Volume 9.5 fL (7.4-10.4); Monocytes # 0.9 10^3/uL (0.2-0.9); Monocytes % 5.5 %; Neutrophils % 80.7 %; Nucleated Red Blood Cells % 0 %; Platelet Count 797 10^3/cmm (157-399); Red Blood Count 3.53 10^6/uL (3.85-5.65); Red Cell Distribution Width 13.3 % (12.1-15.1); White Blood Count 15.98 10^3/uL (3.29-11.43)
[2024-01-17 06:39] LABS: Anion Gap 14.7 (5-19); Blood Urea Nitrogen 15 mg/dL (8-23); Calcium 8.3 mg/dL (8.5-10.5); Carbon Dioxide 25 mmol/L (22-29); Chloride 96 mmol/L (98-107); Creatinine Clr Calc Pharmacy 82.6457; Glomerular Filtration Rate 74.5 mL/min (90-130); Glucose 110 mg/dL (65-115); Lactate Dehydrogenase 273 U/L (135-225); Osmolality Calculated 273 mOsm/kg (285-295); Potassium 4.7 mmol/L (3.5-5.1); Sodium 131 mmol/L (136-145)
--- NOTE | 2024-01-17 06:54 | P.PN_ITS ---
Subjective 2 Subjective: Significant improvement in oxygenation and leukocytosis Currently on 7 L high flow nasal cannula only Endorsing feeling better Patient does get hypoxic on minimal exertion Will start screening for LTAC versus local correction placement Anxiety well-controlled at this point Vancomycin, steroids discontinued, Cultures negative so far LDH is pending from today Vitals/I&O/Wt Last Vital Signs Temp 98.6 F 01/16/24 23:53 Pulse 90 01/17/24 04:57 Resp 18 01/17/24 04:57 BP 101/60 01/17/24 04:57 Pulse Ox 98 01/17/24 04:57 O2 Del Method High Flow Nasal Cannula 01/17/24 03:05 O2 Flow Rate 7 01/17/24 03:05 FiO2 40 01/15/24 13:45 01/16/24 01/16/24 01/17/24 14:59 22:59 06:59 Intake Total 1300 / 1300 1300 / 2600 50 / 2650 Output Total 1500 / 1500 Balance 1300 / 1300 1300 / 2600 -1450 / 1150 Weight last 48 hrs Weight 80.484 kg Weight 79.923 kg Physical Exam 2 Narrative: Awake and alert Euvolemic Bilateral breath sounds with mild rhonchi High flow nasal cannula 7 L GCS 15 Nonfocal neuroexam Pleasant and calm S1, S2 Data 01/17/24 05:24 01/17/24 05:24 Micro: Microbiology 01/14/24 08:04 Gram Stain - Final Lung Left Lower Lobe - #1 Bronchoalveolar Lavage Culture - Final A&P Assessment and plan (1) Depression: Qualifiers: Depression Type: major depressive disorder Major depression recurrence: recurrent Active/Remission status: currently active Major depression episode severity: moderate Qualified Code(s): F33.1 - Major depressive disorder, recurrent, moderate (2) HTN (hypertension) with goal to be determined: (3) GERD (gastroesophageal reflux disease): Qualifiers: Esophagitis presence: without esophagitis Qualified Code(s): K21.9 - Gastro-esophageal reflux disease without esophagitis (4) COPD (chronic obstructive pulmonary disease): Qualifiers: COPD type: chronic bronchitis Chronic bronchitis type: simple Qualified Code(s): J41.0 - Simple chronic bronchitis (5) Pneumonia: (6) Acute respiratory failure with hypoxia: (7) Pulmonary contusion: (8) Mold exposure: (9) Fracture of rib of left side: (10) PCP (pneumocystis carinii pneumonia): Plan Acute hypoxic restaurant failure Pulm contusion versus PCP pneumonia Patient has significantly improved after bronchoscopy, we have weaned him down from heated high flow to nasal cannula high flow at 7 L today Leukocytosis improving Cultures negative LDH pending from today Afebrile Patient gets hypoxic on minimal exertion Spitting up brown-yellow sputum as well He is only on Bactrim and Zosyn at this point Vancomycin steroids discontinued Disposition: Local correction versus LTAC Hemoptysis improved Had DVT prophylaxis back on Full code Anxiety/depression: Controlled at this point with Xanax Attestations 2 Medical Necessity Statement*: Continue medical management Diagnoses Moderate episode of recurrent major depressive disorder F33.1 Depression Type: major depressive disorder Major depression recurrence: recurrent Active/Remission status: currently active Major depression episode severity: moderate HTN (hypertension) with goal to be determined I10 Gastroesophageal reflux disease without esophagitis K21.9 Esophagitis presence: without esophagitis Simple chronic bronchitis J41.0 COPD type: chronic bronchitis Chronic bronchitis type: simple Pneumonia J18.9 Acute respiratory failure with hypoxia J96.01 Pulmonary contusion S27.329A Mold exposure Z77.120 Fracture of rib of left side S22.32XA PCP (pneumocystis carinii pneumonia) B59
[2024-01-17] MEDS: carvedilol 3.125 mg Tablet PO ×2 (08:23→18:36)
[2024-01-17] MEDS: predniSONE 20 mg Tablet 40 MG PO (08:23)
[2024-01-17] MEDS: acetaminophen 500 mg Tablet PO (08:24)
[2024-01-17] MEDS: lisinopril 10 mg Tablet PO (08:24)
[2024-01-17] MEDS: sennosides-docusate Tablet 1 TAB PO (08:24)
[2024-01-17] MEDS: budesonide 0.5 mg/2 mL Neb INHALATION ×2 (09:10→20:05)
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
--- NOTE | 2024-01-17 13:32 | PC.SOCIAL ---
IMM Update pg 2 of IMM updated and reviewed w/ patient. Copy provided and copy dated, initialed and placed in chart.
[2024-01-17 17:40] LABS: Aspergillus AG,EIA,Serum NOT DETECTED; Aspergillus Galactomannan Inde <0.50
[2024-01-17] MEDS: ALPRAZolam 0.5 mg Tablet PO (22:10)
[2024-01-18] VITALS (8 sets, daily range): BP systolic 110–131; BP diastolic 64–68; PULSE 86–92; RESP 18–20; TEMP 36.4–36.5; O2SAT 86–94
[2024-01-18] MEDS: ipratropium-albuterol 3 mL Neb INHALATION ×2 (02:39→08:54)
[2024-01-18 05:57] LABS: Basophils # 0.1 10^3/uL (0.0-0.1); Basophils % 0.7 %; Eosinophils # 0.6 10^3/uL (0.0-0.8); Eosinophils % 3.5 %; Hematocrit 32.8 % (37-53); Lymphocytes # 1.9 10^3/uL (0.8-4.8); Lymphocytes % 12.3 %; Mean Corpuscular HGB Conc 32.6 g/dL (30-55); Mean Corpuscular Hemoglobin 29.8 pg (27-33); Mean Corpuscular Volume 91.4 fl (82-101); Mean Platelet Volume 9.5 fL (7.4-10.4); Monocytes % 6.5 %; Neutrophils # 11.89 10^3/uL (1.8-7.7); Neutrophils % 76.2 %; Nucleated Red Blood Cells % 0 %; Platelet Count 881 10^3/cmm (157-399); Red Blood Count 3.59 10^6/uL (3.85-5.65); Red Cell Distribution Width 13.2 % (12.1-15.1); White Blood Count 15.62 10^3/uL (3.29-11.43)
[2024-01-18] MEDS: piperacillin-tazobactam 3.375 GM in sodium chloride 0.9% (plus) 50 ML IV (06:08)
[2024-01-18 06:18] LABS: Anion Gap 16.3 (5-19); Blood Urea Nitrogen 17 mg/dL (8-23); Calcium 9.6 mg/dL (8.5-10.5); Carbon Dioxide 24 mmol/L (22-29); Chloride 92 mmol/L (98-107); Creatinine Clr Calc Pharmacy 75.1325; Glomerular Filtration Rate 66.8 mL/min (90-130); Glucose 102 mg/dL (65-115); Osmolality Calculated 266 mOsm/kg (285-295); Potassium 5.3 mmol/L (3.5-5.1); Sodium 127 mmol/L (136-145)
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
[2024-01-18] MEDS: budesonide 0.5 mg/2 mL Neb INHALATION (08:54)
[2024-01-18] MEDS: carvedilol 3.125 mg Tablet PO (09:32)
[2024-01-18] MEDS: predniSONE 20 mg Tablet 40 MG PO (09:32)
[2024-01-18] MEDS: lisinopril 10 mg Tablet PO (09:32)
[2024-01-18] MEDS: sennosides-docusate Tablet 1 TAB PO (09:32)
[2024-01-18 18:15] LABS: Fungitell 1-3-B Glucan Assay <31 pg/mL; Interpretation NEGATIVE
[2024-01-19 17:23] LABS: Aspergillus AG,EIA NOT DETECTED; Aspergillus AG,EIA, Index <0.50
[2024-01-23 15:49] LABS: Pigeon Serum Ab NEGATIVE (NEGATIVE); Thermoactinomyces candidus Ab NEGATIVE (NEGATIVE)
== END 2024-01-18 11:56 | disposition home or self-care (01) | DRG 193 ==
LOC: ER 13:22 → ICU 14:52 → MEDSURG 01-11 16:01
PROVIDERS: Family Medicine; Internal Medicine Pulmonary Disease; Admitting Provider Internal Medicine; Emergency Provider Emergency Medicine; PCP Family Medicine; Visit Provider Internal Medicine
PROC: 0BJ08ZZ Inspection of Tracheobronchial Tree, Via Natural or Artificial Opening Endoscopic (ICD-10-PCS; CPT 31622; principal; 2024-01-14 07:00)
DX: J18.9 Pneumonia, unspecified organism (principal); J80 Acute respiratory distress syndrome; S22.32XA Fracture of one rib, left side, initial encounter for closed fracture; J98.11 Atelectasis; F33.1 Major depressive disorder, recurrent, moderate; S27.329A Contusion of lung, unspecified, initial encounter; Z87.891 Personal history of nicotine dependence; K21.9 Gastro-esophageal reflux disease without esophagitis; K52.9 Noninfective gastroenteritis and colitis, unspecified; I10 Essential (primary) hypertension; I25.2 Old myocardial infarction; I65.22 Occlusion and stenosis of left carotid artery; J41.0 Simple chronic bronchitis; R35.1 Nocturia; I25.10 Atherosclerotic heart disease of native coronary artery without angina pectoris; J43.2 Centrilobular emphysema; Z77.120 Contact with and (suspected) exposure to mold (toxic); V49.9XXA Car occupant (driver) (passenger) injured in unspecified traffic accident, initial encounter; Y92.410 Unspecified street and highway as the place of occurrence of the external cause; E78.5 Hyperlipidemia, unspecified; R05.3 Chronic cough; U09.9 Post COVID-19 condition, unspecified
CPT/HCPCS: 31624; 31645; 36415; 36416; 36600; 71045; 71275; 80048; 80053; 80202; 80503; 82607; 82803; 82805; 82962; 83605; 83615; 83735; 83880; 84100; 84145; 84443; 85025; 85610; 86331; 86403; 86606; 86609; 87040; 87070; 87102; 87205; 87206; 87278; 87305; 87426; 87449; 87486; 87581; 87633; 87641; 87798; 87804; 89050; 93005; 93306; 94640; 94660; 94664; 94760; 94762; 96365; 96367; 96372; 96374; 96376; 97161; 97165; 99291; J0171; J1100; J1650; J1940; J2371; J2405; J2543; J2704; J2919; J3370; J3480; J3490; J7030; J7040; J7050; J7060; J7512; J7626; Q9967

== ENCOUNTER → 2024-02-14 09:59 | Outpatient (BNVA) | payer MEDICARE, MEDICAID, SELFPAY | PROVIDERS: PCP Family Medicine; Visit Provider Family Medicine | DX: R82.90 Unspecified abnormal findings in urine (principal); I10 Essential (primary) hypertension; J18.9 Pneumonia, unspecified organism; R73.9 Hyperglycemia, unspecified; Z13.1 Encounter for screening for diabetes mellitus; Z12.5 Encounter for screening for malignant neoplasm of prostate; Z99.81 Dependence on supplemental oxygen; F33.1 Major depressive disorder, recurrent, moderate; R39.198 Other difficulties with micturition; E78.5 Hyperlipidemia, unspecified; E87.1 Hypo-osmolality and hyponatremia; E87.5 Hyperkalemia | CPT/HCPCS: 80053; 80061; 81000; 83036; 85025; 87086; G0103 ==

== ENCOUNTER → 2024-03-22 13:07 | Outpatient (BNVA) | payer MEDICARE, MEDICAID, SELFPAY | PROVIDERS: PCP Family Medicine; Visit Provider Internal Medicine | DX: I65.22 Occlusion and stenosis of left carotid artery (principal); I10 Essential (primary) hypertension; E78.5 Hyperlipidemia, unspecified; K21.9 Gastro-esophageal reflux disease without esophagitis; Z87.891 Personal history of nicotine dependence | CPT/HCPCS: 99214 ==

== ENCOUNTER → 2024-05-22 09:56 | Outpatient (BNVA) | payer MEDICARE, MEDICAID, SELFPAY | PROVIDERS: PCP Family Medicine; Visit Provider Family Medicine | DX: R30.0 Dysuria (principal); R53.83 Other fatigue; D64.9 Anemia, unspecified; I10 Essential (primary) hypertension; J44.9 Chronic obstructive pulmonary disease, unspecified | CPT/HCPCS: 80053; 81000; 83540; 84443; 85025 ==

== ENCOUNTER → 2024-06-09 08:48 | Outpatient (BNVA) | payer MEDICARE, MEDICAID, SELFPAY | PROVIDERS: Referring Provider Nurse Practitioner Family; Visit Provider Internal Medicine Cardiovascular Disease | DX: R74.8 Abnormal levels of other serum enzymes (principal); R30.0 Dysuria | CPT/HCPCS: 80048; 81003 ==